=== PATIENT | female | born 1995 | race African-American/Black ===

== ENCOUNTER 2016-06-23 21:33 | Emergency (ER) | payer OTHER ==
[~2016-06-23] VITALS: Ht 157.5 cm; Wt 68.0 kg
[~2016-06-23 21:33] MED LIST: BIAXIN500 M1 PO; FLEXERIL10 MG PO; IBUPROFEN800 M1 PO; MOTRIN600 MG PO; PENICILLIN V P500 M1 PO
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
[2016-06-23] MEDS ORDERED: CYCLOBENZAPRINE10 M1 PO (21:53)
[2016-06-23] MEDS ORDERED: IBUPROFEN800 M1 PO (21:53)
--- NOTE | 2016-06-23 22:35 | RADIOLOGY REPORT ---
EXAMINATION: XR THORACOLUMBAR SPINE CLINICAL INFORMATION: Neck pain following fall. COMPARISON: CT abdomen and pelvis without contrast 11/16/2015. TECHNIQUE: AP and lateral views of the thoracolumbar spine, 4 views in total. FINDINGS: Normal alignment of the thoracolumbar spine. No acute fracture is identified. No intrinsic bony abnormality is identified. Vertebral body heights and intervertebral disc spaces are maintained. The endplates and posterior elements are intact. The surrounding paravertebral soft tissues are unremarkable. The visualized portions of the bilateral lungs are grossly clear. The bilateral sacroiliac joints are intact. Incidental note is made of unfused bilateral transverse processes of L1. IMPRESSION: No acute fracture or subluxation of the thoracolumbar spine. No visible acute thoracic or lumbar vertebral compression deformities or subluxations.
[2016-06-23 22:51] VITALS: BP 114/78
== END 2016-06-23 22:55 ==
LOC: ERH 21:33
DX: M54.5 Low back pain (principal)
CPT/HCPCS: 72080; 81025

== ENCOUNTER 2017-01-10 23:33 | Emergency (ER) | payer OTHER ==
[~2017-01-10] VITALS: Ht 167.6 cm; Wt 72.6 kg
[~2017-01-10 23:33] MED LIST changes: +CYCLOBENZAPRINE10 M1 PO
[2017-01-10 23:43] VITALS: BP 124/84
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
[2017-01-11] MEDS ORDERED: CYCLOBENZAPRINE5 M2 PO (02:47)
== END 2017-01-11 03:04 ==
LOC: ERH 23:33
DX: S16.1XXA Strain of muscle, fascia and tendon at neck level, initial encounter (principal); V89.2XXA Person injured in unspecified motor-vehicle accident, traffic, initial encounter; Y92.9 Unspecified place or not applicable
CPT/HCPCS: 81025

== ENCOUNTER 2017-06-11 14:38 | Emergency (ER) | payer OTHER ==
[~2017-06-11 14:38] MED LIST changes: +CYCLOBENZAPRINE5 M2 PO; +LO LOESTRIN FE1 EACH PO
[2017-06-11 14:50] VITALS: BP 106/74
== END 2017-06-11 15:15 | disposition admitted as inpatient to this hospital (09) ==
LOC: ERH 14:38
DX: S61.218A Laceration without foreign body of other finger without damage to nail, initial encounter (principal); W45.8XXA Other foreign body or object entering through skin, initial encounter

== ENCOUNTER 2017-06-27 22:45 | Emergency (ER) | payer OTHER ==
[~2017-06-27] VITALS: Ht 157.5 cm; Wt 77.1 kg
--- NOTE | 2017-06-27 23:32 | ED INFLUENZA/URI COMPLAINT ---
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 ANAPHYLAXIS? PT IS UNSURE, WAS A KID, MOM DOESNT RECAL ) Uncoded Allergies: ENVIROMENTAL ALLERGIES (Intermediate, ITCHY EYES 03/09/17) Reconcile Medications Ibuprofen 600 MG TABLET 1 TAB PO Q6PRN PRN pain with food Norethindrone-E.estradiol-Iron (Lo Loestrin Fe 1-10 Tablet) 1MG-10(24) TABLET 1 TAB PO DAILY CONTROL (Reported) Oseltamivir Phosphate (Tamiflu) 75 MG CAPSULE 1 CAP PO BID influenza Oxymetazoline HCl (Afrin) 0.05 % SPRAY 2 SPRAY NASB BID congestion Prednisone 20 MG TABLET 1 TAB PO BID pharyngitis Triage Note: PT TO TRIAGE C/O SORE THROAT, FEVER, CHILLS AND BODY ACHES. TEMP 100.0 IN TRIAGE. FLU SWAB AND THROAT CULTURE SENT TO LAB. Triage Nurses Notes Reviewed? yes Onset: yesterday Duration: day(s):, constant, continues in ED Timing: recent history Severity: moderate Prior Episodes/Possible Cause: illness exposure No Modifying Factors: none Associated Symptoms: cough, fever/chills, headache, muscle aches, nasal congestion, sore throat, diarrhea, anorexia LMP (ages 10-50): unknown : No Patient currently breastfeeds: No HPI: One day prior to admission patient complains of fever chills muscle aches headache nasal congestion and nonproductive cough sore throat diarrhea decreased appetite. She denies chest pain shortness of breath dysuria rash bleeding. Past History Travel History Traveled to [place] past 21 day No Medical History Any Pertinent Medical History? see below for history Neurological: NONE EENT: allergies Cardiovascular: NONE Respiratory: NONE Gastrointestinal: NONE Hepatic: NONE Renal: NONE Musculoskeletal: NONE Psychiatric: NONE Endocrine: NONE Blood Disorders: NONE Cancer(s): NONE History of CDIFF: No Surgical History Surgical History: non-contributory Psychosocial History What is your primary language Polish Tobacco Use: Never used ETOH Use: denies use Family History Hx Contributory? No Review of Systems Review of Systems Constitutional: Reports: see HPI, chills, fever, malaise. EENTM: Reports: see HPI, nasal congestion, throat pain. Respiratory: Reports: see HPI, cough. Denies: sputum production. Cardiovascular: Reports: no symptoms. GI: Reports: no symptoms. Genitourinary: Reports: no symptoms. Musculoskeletal: Reports: see HPI, muscle pain. Skin: Reports: no symptoms. Neurological/Psychological: Reports: see HPI, headache. Hematologic/Endocrine: Reports: no symptoms. Immunologic/Allergic: Reports: no symptoms. All Other Systems: Reviewed and Negative Physical Exam Physical Exam General Appearance: well developed/nourished, alert, awake, anxious, mild distress Head: atraumatic, normal appearance Eyes: Bilateral: normal appearance, PERRL, EOMI. Ears, Nose, Throat: moist mucous membrane, nasal drainage, pharyngeal erythema Neck: normal inspection, supple, full range of motion, trachea midline, lymphadenopathy (R), lymphadenopathy (L) Respiratory: normal breath sounds, chest non-tender, no respiratory distress, quiet respiration, lungs clear Cardiovascular: regular rate/rhythm, normal peripheral pulses, norml femoral pulses equa Peripheral Pulses: 4+ carotid (R), 4+ carotid (L) Gastrointestinal: normal bowel sounds, soft, non-tender, no organomegaly Back: normal inspection, normal range of motion, no vertebral tenderness Extremities: normal inspection, normal capillary refill, normal range of motion, no edema Neurologic/Psych: no motor/sensory deficits, awake, alert, oriented x 3, normal gait, normal mood/affect, receiver setter II-XII nml as tested Reflexes: 2+: bicep (R), bicep (L). Skin: intact, normal color, warm/dry Lymphatic: adenopathy Core Measures Sepsis Present: No Sepsis Focused Exam Completed? No Progress Differential Diagnosis: influenza, pharyngitis, sinusitis Plan of Care: Orders Procedure Date/time Status RAPID VIRAL INFLUENZA A 06/27 2252 Complete THROAT CULTURE W/QUICK STREP 06/27 2252 Active Microbiology 06/27 2254 NASOPHARYN: Influenza Virus A & B Rapid Smear - COMP Initial ED EKG: none Departure Departure Time of Disposition: 2327 Disposition: HOME OR SELF CARE Condition: Stable Clinical Impression Primary Impression: Acute viral syndrome Referrals: Patient Has No Primary Care Dr (PCP/Family) Departure Forms: Customer Survey General Discharge Information RELEASE- WORK Prescriptions: Current Visit Scripts Oseltamivir Phosphate (Tamiflu) 1 CAP PO BID #10 CAP Ibuprofen 1 TAB PO Q6PRN PRN pain #50 TAB with food Prednisone 1 TAB PO BID #10 TAB Oxymetazoline HCl (Afrin) 2 SPRAY NASB BID #30 ML
[2017-06-27] MEDS ORDERED: IBUPROFEN600 M1 PO (23:39)
[2017-06-27] MEDS ORDERED: PREDNISONE20 M1 PO (23:39)
[2017-06-27] MEDS ORDERED: AFRIN30 ML NASB (23:39)
[2017-06-27] MEDS ORDERED: TAMIFLU75 M1 PO (23:39)
[2017-06-28 00:10] VITALS: BP 112/68
== END 2017-06-28 00:12 ==
LOC: ERH 22:45
DX: B34.9 Viral infection, unspecified (principal)
CPT/HCPCS: 87804; 87804-59